=== PATIENT | male | born 1965 | race Caucasian/White ===

== ENCOUNTER 2017-02-15 18:43 | Emergency (ER) | payer SELFPAY ==
[2017-02-15] MEDS ORDERED: Acetaminophen TAB* 325 MG PO ONE (19:35)
[2017-02-15] MEDS ORDERED: Ibuprofen TAB* 600 MG PO ONE (19:36)
[2017-02-15] MEDS ORDERED: Sulfamethox/Trimethoprim DS 800/160* TAB PO ONE (19:36)
[2017-02-15] MEDS ORDERED: cefTRIAXone VIAL(*) 1,000 MG VIAL IM ONE (19:36)
[2017-02-15] MEDS ORDERED: Tetan/Diph/Pertus SYR(Tdap)* 0.5 ML SYR(BOOSTRIX) use SYR IM ONE (19:36)
[2017-02-15 20:25] VITALS: BP 137/83
--- NOTE | 2017-02-16 03:40 | ED ---
Citlalli Person Edward, scribed for Corinna Manzano MD on 02/15/17 at 1927 . Skin Complaint - HPI Summary HPI Summary: 51 y/o male presents to the ED c/o rash on the L hip starting yesterday afternoon. The abscess is red, swollen and painful to touch. Pt states the rash is alleviated with hot showers. Associated sx: EVERETT, chills once this afternoon, chronic neck pain, chronic SOB and chronic R hip pain. Pt is a smoker and uses EtOH. PMHx borderline COPD. Pt is working in [place] but is originally from [place]. - History of Current Complaint Chief Complaint: EDRashSkinAbscess Stated Complaint: LEFT HIP INFECTION, HEADACHE Hx Obtained From: Patient Onset/Duration: Started Hours Ago, Still Present Timing: Constant Skin Location: Discrete - L hip Character: Swelling, Pain, Redness Aggravating Symptom(s): Nothing Alleviating Symptom(s): Other: - hot shower Associated Signs & Symptoms: Rash - Allergy/Home Medications Allergies/Adverse Reactions: Allergies Allergy/AdvReac Type Severity Reaction Status Date / Time No Known Allergies Allergy Verified 02/15/17 19:11 PMH/Surg Hx/FS Hx/Imm Hx Previously Healthy: No Endocrine/Hematology History: Denies: Hx Diabetes Cardiovascular History: Denies: Hx Myocardial Infarction Respiratory History: Reports: Hx Chronic Obstructive Pulmonary Disease (COPD) - borderline Infectious Disease History: No Infectious Disease History: Denies: Traveled Outside the in Last 30 Days - Family History Known Family History: Positive: Unknown - Social History Occupation: Employed Full-time Alcohol Use: Weekly Hx Substance Use: Yes Substance Use Type: Reports: Marijuana Hx Tobacco Use: Yes Smoking Status (MU): Heavy Every Day Tobacco Smoker Review of Systems Positive: Chills Eyes: Negative ENT: Negative Cardiovascular: Negative Positive: Shortness Of Breath - chronic Gastrointestinal: Negative Genitourinary: Negative Positive: Arthralgia - R hip pain going down his R leg, Myalgia - neck pain Positive: Rash Positive: Headache Psychological: Normal All Other Systems Reviewed And Are Negative: No Physical Exam - Summary Physical Exam Summary: Appearance: Alert, conversive, nontoxic appearing Skin: Warm, dry, no mottling, no contusions. There is an erythematous area @ the L hip with a central pore that is scabbed over. There is a 1 cm area of induration. No pusses are expressed. The full extent of the erythema is 14 x 6 cm. HEENT: EOMI, PERRL, moist mucous membranes Neck: No masses on the neck, supple Respiratory: Clear to auscultation, breath sounds present, no rales, no rhonchi , no wheezes Cardiovascular: RRR, pulses are symmetrical in both lower and upper extremities Abdomen: Soft, non-tender Bowel Sounds: Present Musculoskeletal: No CVA tenderness, no obvious deformity, moving all extremities in a grossly normal manner Neurological: A&Ox3, CN II-XII Intact, moving all extremities symmetrically Psychiatric: Normal affect and mood Triage Information Reviewed: Yes Vital Signs On Initial Exam: Initial Vitals Temp Pulse Resp BP Pulse Ox 98.9 F 103 16 156/97 95 02/15/17 19:00 02/15/17 19:00 02/15/17 19:00 02/15/17 19:00 02/15/17 19:00 Vital Signs Reviewed: Yes - Aurelio Coma Scale Coma Scale Total: 15 Diagnostics - Vital Signs Vital Signs Temp Pulse Resp BP Pulse Ox 02/15/17 19:00 98.9 F 103 16 156/97 95 - Laboratory Lab Statement: Any lab studies that have been ordered have been reviewed, and results considered in the medical decision making process. Course/Dx - Course Assessment/Plan: 51 y/o male presents to the ED c/o rash on the L hip starting yesterday afternoon. The abscess is red, swollen and painful to touch. Pt states the rash is alleviated with hot showers. Associated sx: EVERETT, chills once this afternoon, chronic neck pain, chronic SOB and chronic R hip pain. Pt is a smoker and uses EtOH. PMHx borderline COPD. Pt is working in [employer] but is originally from [place]. Pt will be d/c home. Pt was given Bactrim and instructed to use warm compress. - Diagnoses Provider Diagnoses: Cellulitis Discharge - Discharge Plan Condition: Stable Disposition: HOME Prescriptions: Sulfamethox/Trimethoprim DS* [Bactrim DS 800/160 TAB*] 1 tab PO BID #20 tab Patient Education Materials: Cellulitis (ED) Referrals: No Primary Care Phys,NOPCP [Primary Care Provider] - Additional Instructions: Follow up in 2 days at the urgent care. the phone number there is . If your worse, return to the ED for immediate re-evaluation. Take the bactrim as instructed. warm compresses 5 times a day as instructed. Take tylenol and motrin for pain. [address] [id number] The documentation as recorded by the Citlalli silva Edward accurately reflects the service I personally performed and the decisions made by me, Corinna Manzano MD.
== END 2017-02-15 20:24 | disposition home or self-care (01) ==
LOC: ED 18:43
DX: R21 Rash and other nonspecific skin eruption (principal); R51 Headache; F17.210 Nicotine dependence, cigarettes, uncomplicated
CPT/HCPCS: 90715; 96372; 99282; A9270-GY; J0696